=== PATIENT | female | born 1980 | race Caucasian/White ===

== ENCOUNTER → 2018-10-16 | Outpatient (CLI) | payer OTHER ==
[2018-10-16 12:49] LABS: ALBUMIN 3.8 g/dL (3.4-5.0); CALCIUM 8.8 mg/dL (8.5-10.1); CREATININE 0.7 mg/dL (0.6-1.0); GFR 93.6; POTASSIUM 3.8 mmol/L (3.5-5.1); TOTAL BILIRUBIN 0.5 mg/dL (0.2-1.0); TOTAL PROTEIN 7.7 g/dL (6.4-8.2)
[2018-10-16 12:51] LABS: CHOLESTEROL/HDL RATIO 7.3
[2018-10-16 18:09] LABS: FSH 6.5 mIU/mL (.); LUTEINIZING HORMONE 13.1 mIU/mL (.); TESTOSTERONE TOTAL 51 ng/dL (8-48); THYROXINE 5.7 ug/dL (4.5-12.0)
[2018-10-17 12:47] LABS: HEMATOCRIT 44.9 % (36.0-47.0); HEMOGLOBIN 14.9 g/dL (12.0-15.5); RED BLOOD COUNT 5.04 x10^6/uL (3.50-5.40); RED CELL DISTRIBUTION WIDTH 15.1 % (11.5-14.5); WHITE BLOOD COUNT 8.1 x10^3/uL (4.0-11.0)
[2018-10-18 18:12] LABS: ANA INTERP Negative (.)
== END | disposition home or self-care (01) ==
LOC: LAB 08:52
PROVIDERS: ATTEND Family Medicine
DX: E78.5 Hyperlipidemia, unspecified (principal); N91.5 Oligomenorrhea, unspecified; R53.83 Other fatigue
CPT/HCPCS: 36415; 80053; 80061; 82626; 83001; 83002; 84403; 84436; 84443; 85027; 86038

== ENCOUNTER → 2019-04-30 | Outpatient (CLI) | payer OTHER ==
--- NOTE | 2019-04-30 09:19 | KCIC ---
EXAM: Lumbar spine MRI without contrast. HISTORY: Back pain. Radiculopathy. TECHNIQUE: Multiplanar, multisequence magnetic resonance imaging of the lumbar spine was performed without contrast. COMPARISON: None. FINDINGS: There is minimal lumbar dextro scoliosis centered at L3. There is no significant listhesis. The vertebral bodies are normal in height. There is and endplate remodeling with disc space narrowing and disc desiccation at L4-L5. There are tiny endplate Schmorl's nodes at the lower thoracic and upper lumbar levels. There is no suspicious osseous lesion. There is no acute or subacute fracture. The conus terminates at T12-L1. At L1-L2, there is no stenosis. At L2-L3, there is mild facet arthropathy. There is no stenosis. At L3-L4, there is mild facet arthropathy. There is no stenosis. At L4-L5, there is a shallow broad-based posterior central disc protrusion and annular tear superimposed on a mild disc bulge and endplate remodeling. There is mild left facet arthropathy. There is minimal left foraminal stenosis with suspected abutment or near abutment of the exiting left L4 nerve root. At L5-S1, there is mild facet arthropathy. There is no stenosis. IMPRESSION: 1. L4-L5: Shallow broad-based posterior central disc protrusion with annular tear superimposed on a disc bulge, endplate remodeling and mild left facet arthropathy, contributing to minimal left foraminal stenosis. 2. Mild facet arthropathy at the remainder of the lumbar levels. Electronically signed by: Savannah Simeon MD (04/30/2019 9:16 AM) [id number]
== END | disposition home or self-care (01) ==
LOC: KCIC MRI 07:47
PROVIDERS: ATTEND Nurse Practitioner Family
DX: M51.16 Intervertebral disc disorders with radiculopathy, lumbar region (principal); M12.88 Other specific arthropathies, not elsewhere classified, other specified site; M48.061 Spinal stenosis, lumbar region without neurogenic claudication
CPT/HCPCS: 72148